=== PATIENT | male | born 1980 | race Caucasian/White ===

== ENCOUNTER 2020-02-06 18:57 | Emergency (ER) | payer OTHER ==
[~2020-02-06] VITALS: Ht 175.3 cm; Wt 76.2 kg
[~2020-02-06 18:57] MED LIST: ALBU90OI INH; ARIP15 PO; BACL10 PO; Bactrim Ds Tab1 EACH PO; CYCL10 PO; DICL75ER PO; DOXY100 PO; DULO30 PO; FAMO20 PO; IBUP800 PO; Keflex500 MG PO; LITH300C PO; MELO7.5 PO; Monodox100 MG PO; Norco 5-325 Ta1 EACH PO; OLAN5 PO; Ventolin/Prove6.7 GM INH
[2020-02-06 20:07] LABS: BASOPHILS ABSOLUTE AUTO 0.04 K/mm3 (0.00-0.23); BASOPHILS PERCENT AUTO 0 % (0-2); EOSINOPHILS ABSOLUTE AUTO 0.05 K/mm3 (0.00-0.68); EOSINOPHILS PERCENT AUTO 1 % (0-6); Hematocrit 46.8 % (37.0-53.0); Hemoglobin 15.7 g/dL (13.5-17.5); IMMATURE GRAN ABSOLUTE AUTO 0.03 K/mm3 (0.00-0.10); IMMATURE GRAN PERCENT AUTO 0 % (0-1); LYMPHOCYTES ABSOLUTE AUTO 2.11 K/mm3 (0.84-5.20); LYMPHOCYTES PERCENT AUTO 20 % (21-46); MONOCYTES ABSOLUTE AUTO 0.68 K/mm3 (0.16-1.47); MONOCYTES PERCENT AUTO 7 % (4-13); Mean Corpuscular HGB 30.4 pg (26.0-34.0); Mean Corpuscular HGB Conc 33.5 g/dL (31.5-36.5); Mean Corpuscular Volume 91 fL (80-100); Mean Platelet Volume 9.3 fL (9.1-12.4); NEUTROPHILS ABSOLUTE AUTO 7.51 K/mm3 (1.96-9.15); NEUTROPHILS PERCENT AUTO 72 % (41-73); Platelet Count 281 K/mm3 (150-400); RDW Standard Deviation 39.8 fL (35.1-46.3); Red Blood Cell Count 5.16 M/mm3 (4.30-5.90); White Blood Cell Count 10.42 K/mm3 (4.00-11.30)
[2020-02-06 20:25] LABS: Alanine Aminotransfer (ALT/SGP 20 U/L (12-78); Albumin/Globulin Ratio 1.1 (0.8-1.8); Alk Phos 89 U/L (50-136); Anion Gap 8 mmol/L (6-16); Aspartate Aminotrans (AST/SGOT 15 U/L (12-37); Bilirubin, Total 0.4 mg/dL (0.1-1.0); Blood Urea Nitrogen 13 mg/dL (8-24); Bun/Creatinine Ratio 13.2 (12.0-20.0); CO2, Blood 24 mmol/L (21-32); Chloride, Blood 107 mmol/L (98-108); Creatinine, Blood 0.98 mg/dL (0.60-1.20); Globulin, Blood 3.6 g/dL (2.2-4.0); Glomerular Filtration Rate >60 (60-); Glucose, Blood 78 mg/dL (70-99); Potassium, Blood 3.4 mmol/L (3.5-5.5); Sodium, Blood 139 mmol/L (136-145); Total Protein, Blood 7.6 g/dL (6.4-8.2); Troponin I <0.015 ng/mL (0.000-0.040)
== END 2020-02-06 22:54 | disposition home or self-care (01) ==
LOC: ER 18:57
PROVIDERS: Emergency Medicine
DX: R20.0 Anesthesia of skin (principal); R07.9 Chest pain, unspecified; F31.9 Bipolar disorder, unspecified; F17.210 Nicotine dependence, cigarettes, uncomplicated; Z20.2 Contact with and (suspected) exposure to infections with a predominantly sexual mode of transmission; Z88.6 Allergy status to analgesic agent; Z79.899 Other long term (current) drug therapy
CPT/HCPCS: 36415; 80053; 84484; 85025; 93005; 93010; 99285-25

== ENCOUNTER 2020-06-10 08:59 | Inpatient (IN) | payer OTHER ==
[~2020-06-10] VITALS: Ht 175.3 cm; Wt 72.6 kg
[2020-06-10 10:33] LABS: BASOPHILS ABSOLUTE AUTO 0.04 K/mm3 (0.00-0.23); BASOPHILS PERCENT AUTO 1 % (0-2); EOSINOPHILS ABSOLUTE AUTO 0.09 K/mm3 (0.00-0.68); EOSINOPHILS PERCENT AUTO 1 % (0-6); Hematocrit 47.4 % (37.0-53.0); IMMATURE GRAN ABSOLUTE AUTO 0.03 K/mm3 (0.00-0.10); IMMATURE GRAN PERCENT AUTO 0 % (0-1); LYMPHOCYTES ABSOLUTE AUTO 2.29 K/mm3 (0.84-5.20); LYMPHOCYTES PERCENT AUTO 30 % (21-46); MONOCYTES PERCENT AUTO 8 % (4-13); Mean Corpuscular HGB 30.1 pg (26.0-34.0); Mean Corpuscular HGB Conc 33.8 g/dL (31.5-36.5); Mean Corpuscular Volume 89 fL (80-100); Mean Platelet Volume 9.3 fL (9.1-12.4); NEUTROPHILS ABSOLUTE AUTO 4.48 K/mm3 (1.96-9.15); NEUTROPHILS PERCENT AUTO 60 % (41-73); Platelet Count 230 K/mm3 (150-400); RDW Coefficient Variation 12.2 % (11.7-14.2); RDW Standard Deviation 39.3 fL (35.1-46.3); Red Blood Cell Count 5.32 M/mm3 (4.30-5.90); White Blood Cell Count 7.53 K/mm3 (4.00-11.30)
[2020-06-10 10:52] LABS: Alanine Aminotransfer (ALT/SGP 30 U/L (12-78); Albumin, Blood 3.7 g/dL (3.4-5.0); Albumin/Globulin Ratio 1.1 (0.8-1.8); Alk Phos 75 U/L (50-136); Anion Gap 3 mmol/L (6-16); Aspartate Aminotrans (AST/SGOT 18 U/L (12-37); Bilirubin, Total 0.4 mg/dL (0.1-1.0); Blood Urea Nitrogen 15 mg/dL (8-24); CO2, Blood 29 mmol/L (21-32); Calcium, Blood 8.6 mg/dL (8.5-10.1); Chloride, Blood 107 mmol/L (98-108); Creatinine, Blood 0.88 mg/dL (0.60-1.20); Globulin, Blood 3.5 g/dL (2.2-4.0); Glomerular Filtration Rate >60 (60-); Glucose, Blood 91 mg/dL (70-99); Sodium, Blood 139 mmol/L (136-145); Total Protein, Blood 7.2 g/dL (6.4-8.2)
[2020-06-10 13:01] LABS: Influenza A, PCR NEGATIVE (NEGATIVE); Influenza B, PCR NEGATIVE (NEGATIVE); Resp Syncytial Virus, PCR NEGATIVE (NEGATIVE); SARS-Cov-2 (COVID-19) PCR, MMC NEGATIVE (NEGATIVE)
--- NOTE | 2020-06-10 13:15 | NUR ---
PT TO [facility] FROM ER RM 8. NPO SINCE 1900 LAST NOC. History, Chart, Medications and Allergies reviewed before start of procedure. Lungs clear T/O to Auscultation. Patient States Post-Procedure ride home has been arranged. PT AMBULATES TO RESTROOM c SLOW GAIT, + VOID.
--- NOTE | 2020-06-10 15:11 | NUR ---
RECIEVED PATIENT AND REPORT REQUESTING VSS.
--- NOTE | 2020-06-10 16:09 | NUR ---
Discharge instructions reviewed with patient. Patient verbalizes understanding. Copy given to patient to take home. Patient States Post-Procedure ride home has been arranged. Discharged via wheelchair to private car for ride home.
== END 2020-06-10 16:30 | disposition home or self-care (01) | DRG 355 ==
LOC: ER 08:59 → SURS 12:06 → ER 12:54 → SURS 16:30
PROVIDERS: Emergency Medicine; Surgery; ADMIT Internal Medicine
PROC: 0WUF0JZ Supplement Abdominal Wall with Synthetic Substitute, Open Approach (ICD-10-PCS; principal; 2020-06-10 13:00)
DX: K43.6 Other and unspecified ventral hernia with obstruction, without gangrene (principal); Z20.822 Contact with and (suspected) exposure to COVID-19; F31.9 Bipolar disorder, unspecified; F15.10 Other stimulant abuse, uncomplicated; F12.10 Cannabis abuse, uncomplicated; G89.29 Other chronic pain; M54.9 Dorsalgia, unspecified; F17.210 Nicotine dependence, cigarettes, uncomplicated; Z90.49 Acquired absence of other specified parts of digestive tract; Z88.6 Allergy status to analgesic agent; Z91.018 Allergy to other foods
CPT/HCPCS: 0241U; 36415; 74177; 80053; 83690; 85025; 96374-59; 96375; 99285-25; A9270-GY; C1781; J0690; J1100; J2250; J2270; J2405; J2704; J2765; J3010; J7120; Q9967

== ENCOUNTER 2020-11-18 11:28 | Emergency (ER) | payer OTHER ==
[~2020-11-18] VITALS: Ht 175.3 cm; Wt 78.0 kg
[2020-11-18 12:28] LABS: BASOPHILS ABSOLUTE AUTO 0.03 K/mm3 (0.00-0.23); BASOPHILS PERCENT AUTO 0 % (0-2); EOSINOPHILS ABSOLUTE AUTO 0.05 K/mm3 (0.00-0.68); EOSINOPHILS PERCENT AUTO 1 % (0-6); Hematocrit 50.2 % (37.0-53.0); Hemoglobin 17.1 g/dL (13.5-17.5); IMMATURE GRAN ABSOLUTE AUTO 0.02 K/mm3 (0.00-0.10); IMMATURE GRAN PERCENT AUTO 0 % (0-1); LYMPHOCYTES ABSOLUTE AUTO 1.84 K/mm3 (0.84-5.20); LYMPHOCYTES PERCENT AUTO 25 % (21-46); MONOCYTES ABSOLUTE AUTO 0.49 K/mm3 (0.16-1.47); MONOCYTES PERCENT AUTO 7 % (4-13); Mean Corpuscular HGB 30.2 pg (26.0-34.0); Mean Corpuscular HGB Conc 34.1 g/dL (31.5-36.5); Mean Corpuscular Volume 89 fL (80-100); Mean Platelet Volume 9.5 fL (9.1-12.4); NEUTROPHILS ABSOLUTE AUTO 5.05 K/mm3 (1.96-9.15); NEUTROPHILS PERCENT AUTO 67 % (41-73); Platelet Count 228 K/mm3 (150-400); RDW Coefficient Variation 12.4 % (11.7-14.2); RDW Standard Deviation 40.1 fL (35.1-46.3); Red Blood Cell Count 5.66 M/mm3 (4.30-5.90); White Blood Cell Count 7.48 K/mm3 (4.00-11.30)
[2020-11-18 12:53] LABS: Alanine Aminotransfer (ALT/SGP 23 U/L (12-78); Albumin, Blood 3.8 g/dL (3.4-5.0); Alk Phos 85 U/L (50-136); Anion Gap 5 mmol/L (6-16); Aspartate Aminotrans (AST/SGOT 18 U/L (12-37); Bilirubin, Total 0.4 mg/dL (0.1-1.0); Blood Urea Nitrogen 12 mg/dL (8-24); Bun/Creatinine Ratio 12.8 (12.0-20.0); CO2, Blood 29 mmol/L (21-32); Calcium, Blood 8.8 mg/dL (8.5-10.1); Chloride, Blood 106 mmol/L (98-108); Creatinine, Blood 0.94 mg/dL (0.60-1.20); Globulin, Blood 3.8 g/dL (2.2-4.0); Glomerular Filtration Rate >60 (60-); Glucose, Blood 90 mg/dL (70-99); Potassium, Blood 4.1 mmol/L (3.5-5.5); Sodium, Blood 140 mmol/L (136-145); Total Protein, Blood 7.6 g/dL (6.4-8.2); Troponin I <0.015 ng/mL (0.000-0.040)
== END 2020-11-18 13:29 | disposition home or self-care (01) ==
LOC: ER 11:28
PROVIDERS: Emergency Medicine
DX: D17.79 Benign lipomatous neoplasm of other sites (principal); R07.9 Chest pain, unspecified; R11.2 Nausea with vomiting, unspecified; F17.210 Nicotine dependence, cigarettes, uncomplicated; Z88.6 Allergy status to analgesic agent; Z91.048 Other nonmedicinal substance allergy status
CPT/HCPCS: 36415; 80053; 83690; 84484; 85025; 93005; 93010; 99283-25

== ENCOUNTER 2021-11-28 11:38 | Observation (INO) | payer OTHER ==
[~2021-11-28] VITALS: Ht 175.3 cm; Wt 86.2 kg
[2021-11-28 12:42] LABS: Source, Urine Clean Catch
[2021-11-28 12:46] LABS: BASOPHILS ABSOLUTE AUTO 0.04 K/mm3 (0.00-0.23); BASOPHILS PERCENT AUTO 1 % (0-2); EOSINOPHILS ABSOLUTE AUTO 0.09 K/mm3 (0.00-0.68); EOSINOPHILS PERCENT AUTO 1 % (0-6); Hematocrit 49.5 % (37.0-53.0); Hemoglobin 17.2 g/dL (13.5-17.5); IMMATURE GRAN ABSOLUTE AUTO 0.01 K/mm3 (0.00-0.10); IMMATURE GRAN PERCENT AUTO 0 % (0-1); LYMPHOCYTES ABSOLUTE AUTO 2.05 K/mm3 (0.84-5.20); LYMPHOCYTES PERCENT AUTO 28 % (21-46); MONOCYTES PERCENT AUTO 7 % (4-13); Mean Corpuscular HGB 30.4 pg (26.0-34.0); Mean Corpuscular HGB Conc 34.7 g/dL (31.5-36.5); Mean Corpuscular Volume 88 fL (80-100); Mean Platelet Volume 9.6 fL (9.1-12.4); NEUTROPHILS ABSOLUTE AUTO 4.64 K/mm3 (1.96-9.15); NEUTROPHILS PERCENT AUTO 63 % (41-73); Platelet Count 254 K/mm3 (150-400); RDW Coefficient Variation 12.4 % (11.7-14.2); RDW Standard Deviation 40.5 fL (35.1-46.3); Red Blood Cell Count 5.65 M/mm3 (4.30-5.90); White Blood Cell Count 7.33 K/mm3 (4.00-11.30)
[2021-11-28 13:05] LABS: Appearance, Urine Clear (Clear); Bilirubin, Urine Neg (Neg); Blood, Urine Neg (Neg); Color, Urine Yellow (P-Yellow); Glucose Qualitative, Urine Neg (Neg); Ketones, Urine Neg (Neg); Leukocyte Esterase, Urine Neg (Neg); Nitrite, Urine Neg (Neg); Protein, Urine Neg (Neg); Specific Gravity, Urine 1.025 (1.003-1.022); Urobilinogen, Urine NORM (Normal)
[2021-11-28 13:13] LABS: Salicylate 4.5 mg/dL (2.8-20.0)
[2021-11-28 13:16] LABS: Ethanol (Alcohol), Blood, Med <3 mg/dL
[2021-11-28 13:17] LABS: Alanine Aminotransfer (ALT/SGP 31 U/L (12-78); Albumin, Blood 4.1 g/dL (3.4-5.0); Albumin/Globulin Ratio 1.1 (0.8-1.8); Alk Phos 87 U/L (50-136); Anion Gap 4 mmol/L (6-16); Aspartate Aminotrans (AST/SGOT 25 U/L (12-37); Bilirubin, Total 0.3 mg/dL (0.1-1.0); Blood Urea Nitrogen 13 mg/dL (8-24); Bun/Creatinine Ratio 13.8 (12.0-20.0); CO2, Blood 20 mmol/L (21-32); Calcium, Blood 9.1 mg/dL (8.5-10.1); Chloride, Blood 112 mmol/L (98-108); Creatinine, Blood 0.94 mg/dL (0.60-1.20); Globulin, Blood 3.6 g/dL (2.2-4.0); Glomerular Filtration Rate 105 (60-); Glucose, Blood 81 mg/dL (70-99); Potassium, Blood 4.1 mmol/L (3.5-5.5); Sodium, Blood 136 mmol/L (136-145); Total Protein, Blood 7.7 g/dL (6.4-8.2)
[2021-11-28 13:21] LABS: Acetaminophen, Random <2.0 ug/mL (10.0-30.0)
[2021-11-28 15:58] LABS: Influenza A, PCR NEGATIVE (NEGATIVE); Influenza B, PCR NEGATIVE (NEGATIVE); Resp Syncytial Virus, PCR NEGATIVE (NEGATIVE); SARS-Cov-2 (COVID-19) PCR, MMC NEGATIVE (NEGATIVE)
[2021-11-28 17:04] LABS: U Amphetamine Screen Not Detected; U Barbituate Screen Not Detected; U Benzodiazapine Screen Not Detected; U Buprenorphine Screen Not Detected; U Cannabinoids Screen DETECTED; U Cocaine Screen Not Detected; U Methadone Screen Not Detected; U Methamphetamine Screen Not Detected; U Opiates Screen Not Detected; U Oxycodone Screen Not Detected; U Phencyclidine Screen Not Detected; U Propoxyphene Screen Not Detected
[2021-11-28] MEDS ORDERED: ATORVASTATIN CA20 MG PO (17:51)
[2021-11-28] MEDS ORDERED: SERT100 PO (17:51)
[2021-11-28] MEDS ORDERED: LISINOPRIL2.5 MG PO (17:52)
[2021-11-28] MEDS ORDERED: HYDHCL25 PO (17:52)
[2021-11-28] MEDS ORDERED: OMEP20ER PO (17:53)
== END 2021-11-29 16:45 ==
LOC: ER 11:38 → EOR 11:39
PROVIDERS: Physician Assistant; ADMIT Emergency Medicine
DX: F33.2 Major depressive disorder, recurrent severe without psychotic features (principal); Z20.822 Contact with and (suspected) exposure to COVID-19; Z88.2 Allergy status to sulfonamides; F41.9 Anxiety disorder, unspecified; F17.210 Nicotine dependence, cigarettes, uncomplicated
CPT/HCPCS: 0241U; 36415; 80053; 81003; 85025; 99285; A9270; G0378; G0480; Q3014

== ENCOUNTER 2022-10-04 08:54 | Day surgery (SDC) | payer OTHER ==
[2022-10-04] VITALS (21 sets, daily range): BP systolic 93–130; BP diastolic 58–92
[~2022-10-04] VITALS: Ht 175.3 cm; Wt 84.5 kg
[~2022-10-04 08:54] MED LIST changes: +ATORVASTATIN CA20 MG PO; +HYDHCL25 PO; +LISINOPRIL2.5 MG PO; +OMEP20ER PO; +SERT100 PO
--- NOTE | 2022-10-04 09:21 | NUR ---
10/04/22 0921 Devi Talamantes HISTORY, CHART, MEDICATIONS AND ALLERGIES REVIEWED BEFORE START OF PROCEDURE. PATIENT CONFIRMS NPO STATUS AND AGREES WITH SCHEDULED PROCEDURE. 3-LEAD EKG REVIEWED WITH PHYSICIAN PRIOR TO START OF PROCEDURE. MONITOR INTACT WITH CONTINUOUS PULSE OXIMETRY,CAPNOGRAPHY, 3-LEAD EKG, INTERMITTENT BP. SUPPLEMENTAL O2 TO BE TITRATED THROUGHOUT PROCEDURE TO MAINTAIN O2 SATURATION ABOVE 90%. PATIENT DETERMINED TO BE ASA APPROPRIATE FOR PROPOFOL SEDATION PRIOR TO START OF PROCEDURE BY DR. PALMA
== END 2022-10-04 22:46 | disposition home or self-care (01) ==
LOC: ORSCMMR 08:54 → ORD 10:30 → ORSCMMR 10:30
PROVIDERS: Internal Medicine Gastroenterology
PROC: 0DBN8ZX Excision of Sigmoid Colon, Via Natural or Artificial Opening Endoscopic, Diagnostic (ICD-10-PCS; principal; 2022-10-04 10:30)
DX: K62.5 Hemorrhage of anus and rectum (principal); Z80.0 Family history of malignant neoplasm of digestive organs; K63.5 Polyp of colon; K64.8 Other hemorrhoids; E11.9 Type 2 diabetes mellitus without complications; J45.909 Unspecified asthma, uncomplicated; F32.A Depression, unspecified; E78.00 Pure hypercholesterolemia, unspecified; Z79.899 Other long term (current) drug therapy
CPT/HCPCS: 88305; J2250; J2704; J3010; J7120

== ENCOUNTER 2024-11-06 02:45 | Observation (INO) | payer OTHER ==
[~2024-11-06] VITALS: Ht 175.3 cm; Wt 72.7 kg
[2024-11-06 03:13] LABS: BASOPHILS ABSOLUTE AUTO 0.04 K/mm3 (0.00-0.23); BASOPHILS PERCENT AUTO 0 % (0-2); EOSINOPHILS ABSOLUTE AUTO 0.02 K/mm3 (0.00-0.68); EOSINOPHILS PERCENT AUTO 0 % (0-6); Hematocrit 46.0 % (37.0-53.0); Hemoglobin 15.9 g/dL (13.5-17.5); IMMATURE GRAN ABSOLUTE AUTO 0.09 K/mm3 (0.00-0.10); IMMATURE GRAN PERCENT AUTO 1 % (0-1); LYMPHOCYTES ABSOLUTE AUTO 1.71 K/mm3 (0.84-5.20); LYMPHOCYTES PERCENT AUTO 11 % (21-46); MONOCYTES ABSOLUTE AUTO 1.24 K/mm3 (0.16-1.47); MONOCYTES PERCENT AUTO 8 % (4-13); Mean Corpuscular HGB Conc 34.6 g/dL (31.5-36.5); Mean Corpuscular Volume 86 fL (80-100); NEUTROPHILS ABSOLUTE AUTO 12.57 K/mm3 (1.96-9.15); NEUTROPHILS PERCENT AUTO 80 % (41-73); NRBC ABSOLUTE 0.00 K/mm3 (0.00-0.02); NRBC Auto 0.0 /100 WBC (0.0-0.2); Platelet Count 294 K/mm3 (150-400); RDW Coefficient Variation 11.7 % (11.7-14.2); RDW Standard Deviation 36.6 fL (35.1-46.3)
[2024-11-06 03:33] LABS: Alanine Aminotransfer (ALT/SGP 27.0 U/L (12-78); Albumin, Blood 3.5 g/dL (3.4-5.0); Albumin/Globulin Ratio 0.9 (0.8-1.8); Anion Gap 13.0 mmol/L (3-11); Aspartate Aminotrans (AST/SGOT 17.0 U/L (12-37); Bilirubin, Total 0.9 mg/dL (0.1-1.0); Blood Urea Nitrogen 8.0 mg/dL (8-24); CO2, Blood 20.0 mmol/L (21-32); Calcium, Blood 8.7 mg/dL (8.5-10.1); Chloride, Blood 105.0 mmol/L (98-108); Creatinine, Blood 0.95 mg/dL (0.60-1.20); Globulin, Blood 4.0 g/dL (2.2-4.0); Glucose, Blood 121.0 mg/dL (70-99); Potassium, Blood 3.5 mmol/L (3.5-5.5); Sodium, Blood 134.0 mmol/L (136-145); Total Protein, Blood 7.5 g/dL (6.4-8.2)
[2024-11-06] MEDS ORDERED: NS 1,000 ML IV SCH ×4 (04:40→06:00)
[2024-11-06] MEDS ORDERED: CefTRIAXone Sodium 1,000 MG in NS 50 ML IV ONE (04:40)
[2024-11-06] MEDS ORDERED: Ipratropium/Albuterol SulF 2.5-0.5MG/3 ML Amp INH ONE (04:45)
[2024-11-06] MEDS ORDERED: Ondansetron HCl 2 MG / ML 2ML Vial IV PRN (05:50)
[2024-11-06] MEDS ORDERED: FLU VACC TS2025-26(6MOS UP)/PF 45 MCG/0.5 ML SYRINGE IM ONE (05:50)
[2024-11-06 05:55] LABS: Source, Urine Clean Catch
[2024-11-06 06:01] LABS: Color, Urine Amber (P-Yellow); Glucose Qualitative, Urine Neg (Neg); Ketones, Urine Neg (Neg); Leukocyte Esterase, Urine 1+ (Neg); Protein, Urine 2+ (Neg); Specific Gravity, Urine 1.025 (1.003-1.022); Urobilinogen, Urine 1+ (Normal)
[2024-11-06 06:17] LABS: Bilirubin, Urine 1+ (Neg)
[2024-11-06 06:18] LABS: Red Blood Cells, Urine Not Seen /hpf (0-2); White Blood Cells, Urine 0-2 /hpf (0-5)
[2024-11-06] MEDS ORDERED: Enoxaparin 40 MG/0.4 ML SYR SC SCH (09:00)
[2024-11-06 10:24] LABS: Influenza A, PCR NEGATIVE (NEGATIVE); Influenza B, PCR NEGATIVE (NEGATIVE); Resp Syncytial Virus, PCR NEGATIVE (NEGATIVE); SARS-Cov-2 (COVID-19) PCR, MMC NEGATIVE (NEGATIVE)
[2024-11-06 12:14] VITALS: BP 132/106
--- NOTE | 2024-11-06 18:22 | NUR ---
SHIFT SUMMARY- PT ADMITTED THROUGH THE ED FOR PNEUMONIA. PT CAME IN WITH CP AND HAD NEGATIVE TROPONINS. VS STABLE HR TACHY. IVF INFUSING IN THE LEFT AC. PE STUDY NEGATIVE. CALLED DR ESPINOZA AFTER TALKING WITH THE PT. THE PT MADE COMENTS CONCERNING FOR HIS HEALTH. PT STATES "I WAS BJORN HOPING THIS WAS A HEART THING, SO THEN IT WOULD ALL BE OVER." THE PT THEN WENT ON TO SAY "I MEAN ITS THE [place] FORTE OF LIFE RIGHT? I AM NOT OPPOSED TO FEEDING THE WORMS." NOTIFIED DR ESPINOZA AFTER [facility], WHO IS VISITING THE PT NOW. WILL PASS ON TO NIGHT RN THAT THE PT NEEDS EXTRA TIME, SOCIAL INTERACTION, AND INTEREST IN HIS WELLBEING IF THERE IS ANY TO SPARE.
[2024-11-06] MEDS ORDERED: Albuterol 2.5 MG/3 ML VIAL INH PRN (18:30)
--- NOTE | 2024-11-06 18:44 | NUR ---
"Spiritual Care | Nurse Request Pt. is awake in bed and welcomes my visit. Pt. is pleasant, but is very unsettled about his health and his living conditions. Pt. verbalizes details of how he doesn't have easy access to health care because he [place] up near [place] and doesn't drive. The Pt. displayed evidene of hopelessness. Through theraputic listening and a calming presence Pt. began to display a courase fo action that focused on his wellbeing. Prayed with the Pt. and gave pastoral encouragement and prison classification counselor. Pt. verbalized gratitude for the spiritual care visit."
[2024-11-06 19:24] VITALS: BP 135/90
[2024-11-06] MEDS ORDERED: Lactobacil 2-S.Thermo-Bifido 1 1 Cap PO SCH (21:00)
[2024-11-06 23:27] VITALS: BP 132/102
[2024-11-07 03:51] VITALS: BP 154/99
--- NOTE | 2024-11-07 04:31 | NUR ---
Patient reports pain and swelling of bilateral hands, no pitting edema noted just nonpitting generalized edema to both hands, tylenol given for discomfort, denies need for stronger pain medication, nicotine patch came off when up to bathroom, disposed of it properly, pattisharad stated he will be okay until morning,educated to let us know if he decides he needs a replacement patch, complained of sternal chest pain around 0330 this morning, no EKG changes noted vital signs obtained Dr Augustin notified by Leandro WORKMAN, blood pressure medication ordered to start this morning. educated to call for any further pain or discomfort, call light in reach, bed in low and locked positon, instructed to call for help when getting up to bathroom or other reasons. will continue to monitor.
[2024-11-07 05:35] LABS: BASOPHILS ABSOLUTE AUTO 0.03 K/mm3 (0.00-0.23); BASOPHILS PERCENT AUTO 0 % (0-2); EOSINOPHILS ABSOLUTE AUTO 0.08 K/mm3 (0.00-0.68); EOSINOPHILS PERCENT AUTO 1 % (0-6); Hematocrit 42.6 % (37.0-53.0); Hemoglobin 14.5 g/dL (13.5-17.5); IMMATURE GRAN ABSOLUTE AUTO 0.02 K/mm3 (0.00-0.10); IMMATURE GRAN PERCENT AUTO 0 % (0-1); LYMPHOCYTES ABSOLUTE AUTO 2.10 K/mm3 (0.84-5.20); LYMPHOCYTES PERCENT AUTO 26 % (21-46); MONOCYTES ABSOLUTE AUTO 0.82 K/mm3 (0.16-1.47); MONOCYTES PERCENT AUTO 10 % (4-13); Mean Corpuscular HGB Conc 34.0 g/dL (31.5-36.5); Mean Corpuscular Volume 89 fL (80-100); NEUTROPHILS ABSOLUTE AUTO 4.90 K/mm3 (1.96-9.15); NEUTROPHILS PERCENT AUTO 62 % (41-73); NRBC ABSOLUTE 0.00 K/mm3 (0.00-0.02); NRBC Auto 0.0 /100 WBC (0.0-0.2); Platelet Count 238 K/mm3 (150-400); RDW Coefficient Variation 11.8 % (11.7-14.2); RDW Standard Deviation 38.4 fL (35.1-46.3)
[2024-11-07 05:58] LABS: Anion Gap 8.0 mmol/L (3-11); Blood Urea Nitrogen 8.0 mg/dL (8-24); CO2, Blood 22.0 mmol/L (21-32); Calcium, Blood 8.4 mg/dL (8.5-10.1); Chloride, Blood 110.0 mmol/L (98-108); Creatinine, Blood 0.78 mg/dL (0.60-1.20); Glucose, Blood 97.0 mg/dL (70-99); Potassium, Blood 3.8 mmol/L (3.5-5.5); Sodium, Blood 136.0 mmol/L (136-145)
[2024-11-07 07:07] VITALS: BP 123/89
[2024-11-07] MEDS ORDERED: CefTRIAXone Sodium 1,000 MG in NS 100 ML IV SCH (09:00)
[2024-11-07] MEDS ORDERED: IBUP800 PO (12:10)
[2024-11-07] MEDS ORDERED: Prinivil10 MG PO (12:11)
[2024-11-07] MEDS ORDERED: SERT50 PO (12:12)
[2024-11-07] MEDS ORDERED: NICODERM CQ1 EA11 TOP (12:12)
[2024-11-07] MEDS ORDERED: PRED20 PO (12:12)
[2024-11-07] MEDS ORDERED: VISBIOME 112.51 EACH PO (12:13)
[2024-11-07] MEDS ORDERED: AZIT500 PO (12:13)
--- NOTE | 2024-11-07 13:18 | NUR ---
DISCHARGE NOTE PT A&OX4. PT ADMITTED DUE TO SEPSIS. PT REPORTS CHEST PAIN, SARAHI KATZ NOTIFIED, DR. MCCLAIN ORDERED ESR LAB, ESR LAB RESULTS REPORTED TO DR. MCCLAIN. DR MCCLAIN REPORTED "STILL OK TO DISCHARGE." PT GOT SHOWER. IV AND TELE D/C NO TELE REPORTS THIS AM. PT REPORTS SOME SOB WITH AMBULATION. COFFEE BLENDER INVOLVED WITH TRANSPORT. STRATEGIC PLANNING MANAGERJACINTA DUKE COMPLETED DISCHARGE. WENT OVER DISCHARGE WITH PT. STRATEGIC PLANNING MANAGER FAXED MEDS TO PREFERED PHARMACY. PT ESCORTED BY WHEELCHAIR TO [facility] PER COFFEE BLENDER FOR [facility]AXI ARRANGEMENTS AT 1255. PT TOOK ALL PERSONAL BELONGINGS. VSS.
[2024-11-08 04:51] LABS: CYCLIC CITRULLINATED PEP,IGG/A 5 Units (0-19)
[2024-11-08 22:46] LABS: ANTI-NUCLEAR AB ANA,IGG ELISA None Detected (None Detected)
== END 2024-11-07 12:55 | disposition home or self-care (01) ==
LOC: ER 02:45 → ERHOLD 02:46 → MEDS 12:10 → ENPENDDIS 11-07 11:45 → MEDS 11-07 12:55
PROVIDERS: Emergency Medicine; Internal Medicine; ADMIT Student in an Organized Health Care Education/Training Program
DX: R07.81 Pleurodynia (principal); R65.10 Systemic inflammatory response syndrome (SIRS) of non-infectious origin without acute organ dysfunction; E87.20 Acidosis, unspecified; I10 Essential (primary) hypertension; F17.210 Nicotine dependence, cigarettes, uncomplicated; E78.00 Pure hypercholesterolemia, unspecified; F31.9 Bipolar disorder, unspecified; R00.0 Tachycardia, unspecified; R79.89 Other specified abnormal findings of blood chemistry; M94.0 Chondrocostal junction syndrome [Tietze]; J45.909 Unspecified asthma, uncomplicated; Z88.8 Allergy status to other drugs, medicaments and biological substances; Z91.048 Other nonmedicinal substance allergy status; Z79.899 Other long term (current) drug therapy; Z59.6 Low income; Z59.89 Other problems related to housing and economic circumstances
CPT/HCPCS: 36415; 71045; 71260; 80048; 80053; 81001; 83605; 84145; 84484; 85025; 85379; 85651; 86038; 86200; 87040; 87086; 87637; 93005; 93010; 94760; 96372; 96374; 96375; 96376; 99285-25; A9270; G0378; J0456; J0696; J1650; J7030; J7050; J7512; Q9967

== ENCOUNTER 2024-11-17 11:06 | Observation (INO) | payer OTHER ==
[~2024-11-17] VITALS: Ht 182.9 cm; Wt 81.7 kg
[~2024-11-17 11:06] MED LIST changes: +AZIT500 PO; +NICODERM CQ1 EA11 TOP; +PRED20 PO; +Prinivil10 MG PO; +SERT50 PO; +VISBIOME 112.51 EACH PO
[2024-11-17] MEDS ORDERED: ALBU90OI INH (11:51)
[2024-11-17 12:06] LABS: Source, Urine Clean Catch
[2024-11-17 12:12] LABS: BASOPHILS ABSOLUTE AUTO 0.05 K/mm3 (0.00-0.23); BASOPHILS PERCENT AUTO 1 % (0-2); EOSINOPHILS ABSOLUTE AUTO 0.10 K/mm3 (0.00-0.68); EOSINOPHILS PERCENT AUTO 1 % (0-6); Hematocrit 46.8 % (37.0-53.0); Hemoglobin 16.3 g/dL (13.5-17.5); IMMATURE GRAN ABSOLUTE AUTO 0.04 K/mm3 (0.00-0.10); IMMATURE GRAN PERCENT AUTO 0 % (0-1); LYMPHOCYTES ABSOLUTE AUTO 2.52 K/mm3 (0.84-5.20); LYMPHOCYTES PERCENT AUTO 25 % (21-46); MONOCYTES ABSOLUTE AUTO 0.59 K/mm3 (0.16-1.47); MONOCYTES PERCENT AUTO 6 % (4-13); Mean Corpuscular HGB Conc 34.8 g/dL (31.5-36.5); Mean Corpuscular Volume 85 fL (80-100); NEUTROPHILS ABSOLUTE AUTO 6.73 K/mm3 (1.96-9.15); NEUTROPHILS PERCENT AUTO 67 % (41-73); NRBC ABSOLUTE 0.00 K/mm3 (0.00-0.02); NRBC Auto 0.0 /100 WBC (0.0-0.2); Platelet Count 416 K/mm3 (150-400); RDW Coefficient Variation 11.9 % (11.7-14.2); RDW Standard Deviation 37.0 fL (35.1-46.3)
[2024-11-17 12:14] LABS: Bilirubin, Urine Neg (Neg); Color, Urine Yellow (P-Yellow); Glucose Qualitative, Urine Neg (Neg); Ketones, Urine Neg (Neg); Leukocyte Esterase, Urine Neg (Neg); Protein, Urine Neg (Neg); Specific Gravity, Urine 1.020 (1.003-1.022); Urobilinogen, Urine NORM (Normal)
[2024-11-17 12:30] LABS: U Amphetamine Screen Not Detected; U Barbituate Screen Not Detected; U Benzodiazapine Screen Not Detected; U Buprenorphine Screen Not Detected; U Cannabinoids Screen DETECTED; U Cocaine Screen Not Detected; U Methadone Screen Not Detected; U Methamphetamine Screen Not Detected; U Opiates Screen Not Detected; U Oxycodone Screen Not Detected; U Phencyclidine Screen Not Detected
[2024-11-17 12:35] LABS: Ethanol (Alcohol), Blood, Med <3 mg/dL; Salicylate 2.0 mg/dL (2.8-20.0)
[2024-11-17 13:17] LABS: Acetaminophen, Random <2.0 ug/mL (10.0-30.0); Alanine Aminotransfer (ALT/SGP 60 U/L (12-78); Albumin, Blood 3.6 g/dL (3.4-5.0); Albumin/Globulin Ratio 0.9 (0.8-1.8); Anion Gap 8 mmol/L (3-11); Aspartate Aminotrans (AST/SGOT 39 U/L (12-37); Bilirubin, Total 0.3 mg/dL (0.1-1.0); Blood Urea Nitrogen 5 mg/dL (8-24); CO2, Blood 24 mmol/L (21-32); Calcium, Blood 9.1 mg/dL (8.5-10.1); Chloride, Blood 107 mmol/L (98-108); Creatinine, Blood 0.87 mg/dL (0.60-1.20); Globulin, Blood 4.0 g/dL (2.2-4.0); Glucose, Blood 93 mg/dL (70-99); Potassium, Blood 3.5 mmol/L (3.5-5.5); Sodium, Blood 135 mmol/L (136-145); Total Protein, Blood 7.6 g/dL (6.4-8.2)
[2024-11-17 16:02] VITALS: BP 119/81
== END 2024-11-17 16:19 | disposition other institution (70) ==
LOC: ER 11:06 → EOR 11:07
PROVIDERS: Student in an Organized Health Care Education/Training Program; ADMIT Emergency Medicine
DX: F33.2 Major depressive disorder, recurrent severe without psychotic features (principal); F17.210 Nicotine dependence, cigarettes, uncomplicated; Z88.8 Allergy status to other drugs, medicaments and biological substances; Z79.899 Other long term (current) drug therapy
CPT/HCPCS: 80053; 80320; 81003; 85025; 99285; A9270; G0480

== ENCOUNTER 2024-11-17 11:07 | Inpatient (IN) | payer OTHER ==
[~2024-11-17] VITALS: Ht 175.3 cm; Wt 87.7 kg
[2024-11-17] MEDS ORDERED: ALBU90OI INH (11:51)
[2024-11-17] MEDS ORDERED: Ondansetron 4 MG SoluTab MM PRN (14:05)
[2024-11-17] MEDS ORDERED: Polyethylene Glycol 3350 17 gm PO PRN (14:05)
[2024-11-17] MEDS ORDERED: FLU VACC TS2025-26(6MOS UP)/PF 45 MCG/0.5 ML SYRINGE IM SCH (14:10)
[2024-11-17] MEDS ORDERED: LORazepam 2 MG/ML 1ML Injection IM PRN (14:10)
[2024-11-17] MEDS ORDERED: Aluminum Hydroxide 320MG/5ML 473 ML PO PRN (14:15)
[2024-11-17] MEDS ORDERED: DiphenhydrAMINE HCl 50 MG/ML 1ML Vial IM PRN (14:15)
[2024-11-17] MEDS ORDERED: Haloperidol Lactate Inj. 5 MG/ML Injection IM PRN (14:15)
[2024-11-17 16:41] VITALS: BP 144/87
[2024-11-17 16:55] VITALS: BP 144/87
--- NOTE | 2024-11-17 18:16 | NUR ---
ADMISSION NOTE/SHIFT SUMMARY PT ARRIVED FROM [facility] ER AT APPROX 1624. PT WAS AxOx4. PLEASANT AND COOPERATIVE WITH CARE. PT HERE WITH CURRENT SUICIDAL IDEATION, ENDORSES PLAN TO USE A "HOME MADE NOOSE." PT REPORTS TRIGGER BEING INCREASING CONFLICT WITH ROOM MATE AND FEELING BURDENED WITH HIS CARE AND HOUSEKEEPING. PT REPORTS COMPLIANCE WITH MEDICATION, BUT DIFFICULTY OBTAINING TRANSPORTATION FOR MEDICAL APPOINTMENTS. PT IDENTIFIED GOALS OF GAINING COPING SKILLS TO MANAGE MENTAL HEALTH. PT REPORTS CHRONIC BACK PAIN THAT HE SELF MANAGES WITH MARIJUANA AND IBUPROFEN. PT ALSO REPORTS USING A CANE TO ASSIST WITH GETTING UP AND DOWN TO SITTING POSITION, BUT STATES HE DOES NOT NEED IT AT ALL TIMES FOR STABILITY. PT AGREED THAT USING SIDE RAILS ON UNIT WILL BE ACCESSIBLE FOR HIS MOBILITY NEEDS. PT IS CURRENTLY SITTING IN DINING ROOM EATING DINNER. ADMISSION COMPLETED. PT IS HERE VOLUNTARILY. HE CURRENTLY DENIES ANY NEED AT THIS TIME.
[2024-11-17 20:03] VITALS: BP 138/90
--- NOTE | 2024-11-18 04:19 | NUR ---
SHIFT SUMMARY 44 YEAR OLD MALE PRESENTED WELL GROOMED AND ABLE TO MAKE AND KEEP EYE CONTACT DURING CONVERSATION. PT SPOKE IN A CLEAR VOICE AND IN AN APPROPRIATE VOLUME. WHEN ASKED ABOUT HIS MOOD, HE SATED, "I'M STILL IN A BAD HEADSPACE." PT DENIED HI AND AVTH, BUT ENDORCED ONGOING SI. WHEN ASK IF HE HAD A PLAN, HE STATED, "NO. I HAVEN'T HAD A CHANCE TO SIT DOWN AND REALLY THINK ABOUT IT. I KNOW THAT SOUNDS BAD, BUT IT'S JUST THE WAY MY BRAIN WORKS." PT WAS CALM AND COOPERATIVE WITH CARE. PT RECEIVED PRN IBUPROFEN FOR LOWER BACK PAIN. PT INTERACTED WELL WITH STAFF AND PEERS. WATCHED TV AND ATTENDED SNACK. HAS SLEPT MOST OF THE NIGHT. CONTINUES TO BE MONITORED Q15 MINUTES FOR SAFETY, WITH SI MITIGATION CHECKS Q4 HOURS. ADMISSION PACKET COMPLETED.
[2024-11-18 08:11] LABS: CHOL/HDL RATIO 7.3; Cholesterol 197 mg/dL (50-200); HDL Cholesterol 27 mg/dL (>39); LDL/HDL RATIO 5.3; Low Density Lipoprotein Chol 144 mg/dL (0-110); Triglycerides 132 mg/dL (30-160); Very Low Density Lipoprot Chol 26 mg/dL (6-32)
[2024-11-18] MEDS ORDERED: Multivitamins 1 Tab PO SCH (09:00)
[2024-11-18 09:08] VITALS: BP 142/106
[2024-11-18 10:11] VITALS: BP 135/84
[2024-11-18] MEDS ORDERED: Albuterol HFA200 ACT/6.7 GM INH INH PRN (11:30)
--- NOTE | 2024-11-18 17:41 | NUR ---
SHIFT SUMMARY PT EXPRESSES CONTINUED SI WITHOUT A SPECIFIC PLAN. HE CONINUES TO HAVE A DESIRE TO FIND A NEW LIVING SITUATION HE FEELS HIS CURRENT ONE WITH HIS FRIEND IS A TOXIC SITUATION. HE WAS MEDICATED MULTIPLE TIMES FOR CHRONIC BACK PAIN, SEE MAR. PT WAS GIVEN PRN VISTARIL FOR ANXIETY, BY JACINTA CAIN. SEE MASS SCORE. PT HAD A DEPRESSIVE AFFECT THIS SHIFT. HE DENIES HI/AVTH. PT ATTENDED GROUPS. HE C/O CP AND STATES IT FEEL LIKE IT DOES WHEN HIS BP GETS HIGH AND HE DOESN'T TAKE HIS MEDS. PT STARTED ON HIS LISINOPRIL AND EKG DONE AND SHOWN TO DR. PAK.
--- NOTE | 2024-11-19 04:13 | NUR ---
SHIFT SUMMARY PATIENT UP IN MILIEU WATCHING TV AT BEGINNING OF SHIFT. C/O LOW BACK AND WRIST PAIN 9/10 VERBALIZED CHRONIC PAIN WITH 4/10 ON A "GOOD DAY" IBUPROFEN PRN GIVEN. PATIENT CONTINUES TO HAVE SI WITH PLAN TO "PUT MY NOOSE TO GOOD WORK" WHEN HE GOES HOME. VERBALIZED NO PLAN WHILE HERE AT THIS TIME. DENIES AVTH. VERBALIZED FEELING ANXIOUS AND RESTLESS MASS 4 ZYPREXA PRN GIVEN. AFTER SNACK PATIENT RETURNED TO WATCHING TV. REQUESTING TRAZODONE FOR SLEEP. APPEARS TO BE SLEEPING WELL T/O NIGHT. CONTINUE TO MONITOR Q15MIN
[2024-11-19 08:51] VITALS: BP 147/102
[2024-11-19] MEDS ORDERED: Menthol/Methyl Salicylate Crm 85 GM TUBE TOP PRN (15:16)
--- NOTE | 2024-11-19 18:10 | NUR ---
SHIFT SUMMARY PT HAD TO BE WOKE FOR AM MEAL. HE WAS C/O PAIN 9/10 THIS AM, IN HIS NECK AND WRIST AND MOST JOINTS, WHICH IS CHRONIC FOR HIM. HE WAS MEDICATED WITH PRN PAIN MEDS TWICE THIS SHIFT, SEE MAR. PT APPEARED SLIGHTLY DIAPHORETIC AND DROWSY, HE HAD TREMORS IN HIS BUE AND HE WAS MOVING HIS HANDS AROUND EACH OTHER. PT WAS ALSO RECIEVED PRN HYDROXYZINE, SEE MAR. PT WAS COMPLIANT WITH ALL MEDICATIONS AND ATTENDED ALL MEALS. HE HAS A DEPRESSIVE AFFECT AND STATES HE STILL HAS SI WITHOUT A PLAN BUT DENIES HI. HE DENIES AVTH. A CONSULT WAS PLACED FOR HOSPITALIST R/T PAIN MANAGEMENT. HIS ADVIL WAS INCREASED AND HE WAS PLACED ON BACLOFEN PRN, SEE MAR. AFTER DINNER MEAL PT WAS HEAR LOUDLY VOMITING IN ROOM. JACINTA LOPEZ ASKED PT IF HE IS POSSIBLY WITHDRAWING FROM SOMETHING, PT DENIED. PT STATED HE "DOES THIS SOMETIMES." PT WAS MEDICATED WITH PRN ZOFRAN, SEEN ON APR. VSS.
[2024-11-19 18:21] VITALS: BP 153/96
[2024-11-19 19:51] VITALS: BP 127/93
--- NOTE | 2024-11-19 23:33 | NUR ---
PATIENT UP TO BATHROOM HAVING LARGE AMT OF DARK BROWN EMESIS. ZOFRAN GIVEN, PATIENT VERBALIZED NAUSEA BETTER AFTER EMESIS. WILL CONTINUE TO MONITOR FOR FURTHER EMESIS OR NAUSEA. SINK AND FLOOR CLEANED WITH BLEACH WIPES.
--- NOTE | 2024-11-20 04:33 | NUR ---
SHIFT SUMMARY PATIENT IN BED VERBALIZED CONTINUES TO FEEL SLIGHT NAUSEA, ZOFRAN GIVEN AT 1816 AFTER EMESIS. PATIENT VERBALIZED THAT HE CONTINUES TO HAVE SI WITH NO PLAN WHILE HERE. DENIES HI, OR AVTH. CONTINUES TO HAVE BACK, WRIST, KNEE AND ANKLE PAIN 7/10 IBUPROFEN GIVEN. PATIENT UP FOR SNACK ABLE TO EAT CHEERIOS THEN BACK TO BED. VERBALIZED NO PAIN RELIEF WITH IBUPROFEN AND PATIENT NOW HAVING HICCUPS, BACLOFEN GIVEN. PATIENT AWAKENS WITH N/V WITH LARGE AMT APROX 500CC OF DARK BROWN EMESIS, ZOFRAN GIVEN WITH NO RELIEF OF NAUSEA. AT 0125 ORDER OBTAINED FOR ONE TIME DOSE OF PHENERGAN DUE TO CONTINUES N/V EMESIS AT 0140 WAS SMALL YELLOW BILE. PATIENT NOW SLEEPING AND CONTINUES TO HAVE HICCUPS. CONTINUE TO MONITOR Q15MIN
[2024-11-20 08:58] VITALS: BP 132/88
--- NOTE | 2024-11-20 10:17 | NUR ---
UPDATE PT VOMITED AROUND 5-10ML OF CLEAR EMESIS (PER PT). BT AUSCULTATED IN ALL 4 QUADRANTS.
--- NOTE | 2024-11-20 17:04 | NUR ---
SHIFT SUMMARY PT DENIES HI, AVTH. C/O OF SI, W/ NO INTENT TO ACT/PLAN WHILE ON UNIT. PT STATES THAT SI IS CHRONIC, BUT CURRENTLY IS WORRIED ABOUT POST DISCHARGE PLANS D/T HOUSING SITUATION. AND RUSSELL AWARE. PT INTERACTING W/ PEERS AND STAFF AND IS CURRENTLY IN DAYROOM WATCHING TV. THIS AM PT VOMITED TWICE TODAY W/ INITIAL EMESIS BEING CLEAR AND SECOND ONE BEING CARRERA. PT COMPLAINED OF EPIGASTRIC PAIN "FEELS LIKE I HAVE A PILL STUCK THERE". ZOFRAN GIVEN INITIALLY, THEN DOCTOR NOTIFIED W/ ORDERS FOR PROMETHAZINE. PT HAS NOT BEEN NAUSEOUS SINCE. PT STATES THAT THIS IS CHRONIC FOR HIM AND THAT ITS USUALLY PRECEDED BY HICCUPS. PT STATED HE HAD A BOWEL MOVEMENT YESTERDAY MORNING W/ BROWN/RED STOOL, PT STATES THAT HE HAS HEMMRHOIDS AND AWARE. DR BY TO SEE PT AND EVALUATE. BT AUSCULTATED IN ALL 4 QUADRANTS. ONLY COMPLAINT PT HAS AT THIS TIME IS LOWER BACK PAIN; IBUPROFEN GIVEN PER EMAR.
[2024-11-20] MEDS ORDERED: Metoclopramide HCL Soln 10 MG/10 ML UDC PO PRN (18:35)
[2024-11-20 18:40] VITALS: BP 125/90
--- NOTE | 2024-11-21 05:03 | NUR ---
SHIFT SUMMARY: PATIENT WAS IN HIS ROOM, VOMITING, AT THE BEGINNING OF THE SHIFT. HE WAS QUITE CONCERNED BECAUSE THERE WAS A SMALL AMOUNT OF BRIGHT RED BLOOD IN THE EMESIS. RN SPOKE WITH HIM ABOUT WHAT THAT MIGHT MEAN, AND THAT IT WAS SOMETHING TO KEEP AN EYE ON AND REPORT TO THE DOCTOR, BUT NOT PANIC OVER. THAT SAID, PATIENT WAS ASKED TO SHOW EMESIS TO RN EACH TIME, SO THAT AN ASSESSMENT COULD BE MADE. HE HAD TAKEN REGLAN EARLIER ON DAY SHIFT, AND TRIED PHENERGAN WITH HIS EVENING MEDICATIONS. THE COMBINATION OF THE TWO, AND HIS EATING HIS SNACK SLOWLY ( DIRECTED BY RN), APPEAR TO HAVE HELPED CALM HIS STOMACH. HE WAS ABLE TO REST QUIETLY THROUGHOUT THE NIGHT WITHOUT MORE EMESIS ISSUES. HE WAS ABLE TO ANSWER RECRUIT INSTRUCTOR QUESTIONS IN A LOGICAL AND LINEAR MANNER. CONCERNINGLY, HE STATED, "I AM GOING TO HANG MYSELF ON RELEASE". HE DENIED A PLAN TO TRY TO HARM OR KILL HIMSELF ON THE BHU. "IT'LL HAPPEN RIGHT AFTER I LEAVE." HE STATED, "IF SOMEONE KNOWS A WAY TO STOP ME, THEY CAN TRY, BUT THAT'S MY PLAN." HE PARTICIPATED IN SNACK AND WRAP UP GROUP, AND DID NOT VOMIT UP HIS SNACK. HE WENT TO BED SHORTLY AFTER, AND WAS NOTED TO BE RESTING QUIETLY WITH EYES CLOSED AND RESPIRATIONS CONFIRMED FOR THE REMAINDER OF THE SHIFT. CONTINUING TO MONITOR FOR SAFETY WITH Q15 MINUTE CHECKS.
[2024-11-21 07:55] LABS: BASOPHILS ABSOLUTE AUTO 0.05 K/mm3 (0.00-0.23); BASOPHILS PERCENT AUTO 0 % (0-2); EOSINOPHILS ABSOLUTE AUTO 0.07 K/mm3 (0.00-0.68); EOSINOPHILS PERCENT AUTO 1 % (0-6); Hematocrit 45.6 % (37.0-53.0); Hemoglobin 15.3 g/dL (13.5-17.5); IMMATURE GRAN ABSOLUTE AUTO 0.03 K/mm3 (0.00-0.10); IMMATURE GRAN PERCENT AUTO 0 % (0-1); LYMPHOCYTES ABSOLUTE AUTO 2.21 K/mm3 (0.84-5.20); LYMPHOCYTES PERCENT AUTO 19 % (21-46); MONOCYTES ABSOLUTE AUTO 0.72 K/mm3 (0.16-1.47); MONOCYTES PERCENT AUTO 6 % (4-13); Mean Corpuscular HGB Conc 33.6 g/dL (31.5-36.5); Mean Corpuscular Volume 88 fL (80-100); NEUTROPHILS ABSOLUTE AUTO 8.63 K/mm3 (1.96-9.15); NEUTROPHILS PERCENT AUTO 74 % (41-73); NRBC ABSOLUTE 0.00 K/mm3 (0.00-0.02); NRBC Auto 0.0 /100 WBC (0.0-0.2); Platelet Count 330 K/mm3 (150-400); RDW Coefficient Variation 12.0 % (11.7-14.2); RDW Standard Deviation 39.0 fL (35.1-46.3)
[2024-11-21 08:20] LABS: Alanine Aminotransfer (ALT/SGP 27.0 U/L (12-78); Albumin, Blood 3.2 g/dL (3.4-5.0); Albumin/Globulin Ratio 0.9 (0.8-1.8); Anion Gap 9.0 mmol/L (3-11); Aspartate Aminotrans (AST/SGOT 16.0 U/L (12-37); Bilirubin, Total 0.3 mg/dL (0.1-1.0); Blood Urea Nitrogen 13.0 mg/dL (8-24); CO2, Blood 25.0 mmol/L (21-32); Calcium, Blood 8.5 mg/dL (8.5-10.1); Chloride, Blood 106.0 mmol/L (98-108); Creatinine, Blood 0.85 mg/dL (0.60-1.20); Globulin, Blood 3.7 g/dL (2.2-4.0); Glucose, Blood 104.0 mg/dL (70-99); Potassium, Blood 4.3 mmol/L (3.5-5.5); Sodium, Blood 136.0 mmol/L (136-145); Total Protein, Blood 6.9 g/dL (6.4-8.2)
[2024-11-21 08:57] VITALS: BP 130/88
[2024-11-21 20:27] VITALS: BP 129/104
--- NOTE | 2024-11-22 04:45 | NUR ---
SHIFT SUMMARY: PATIENT WAS VOMITING AT THE BEGINNING OF THE SHIFT. RN TALKED OVER THE SITUATION WITH HIM AND MADE A GAME PLAN TOGETHER. HE TRIED AMPHOJEL, WHICH WAS SUCCESSFUL IN GIVING HIM A BREAK FROM HIS NAUSEA. HE WAS ABLE TO REST FOR A TIME, AND STATED HE DID NOT WANT TO ATTEND SNACK OR WRAP UP GROUP. HE WAS ABLE TO ANSWER TITLE INVESTIGATOR QUESTIONS IN A LOGICAL AND LINEAR MANNER. HE DENIED SUICIDAL IDEATION, THOUGHTS OF SELF HARMING AND A/V/T HALLUCINATIONS. HE PRESENTED FOCUSED ON HIS HEALTH AND "GETTING RID OF WHATEVER THIS PROBLEM IS". HE SHOWED FORWARD THINKING BEHAVIORS. HE HAD REGLAN AND TUMS WITH HIS EVENING MEDICATION ADMINISTRATION, WHICH WERE HELPFUL FOR HIM FOR SEVERAL HOURS. HE AWOKE LATER IN THE NIGHT, AND HAD AN EPISODE OF NAUSEA/VOMITING. HE REQUESTED AND WAS GIVEN PHENERGAN AND VISTARIL, FOR NAUSEA/VOMITING AND ANXIETY WITH A MASS SCORE OF 6. THEY WERE EFFECTIVE IN THAT HE STOPPED VOMITING AND WAS ABLE TO REST QUIETLY. HE ALSO WAS GIVEN ULI BARAHONA CREME, WHICH HE SPREAD ON SORE MUSCLES, AFTER EDUCATION THAT IT MIGHT BE HELPFUL TO CURB NAUSEA. HE RESTED QUIETLY FOR THE REST OF THE SHIFT, EXCEPT FOR TAKING HIS PRILOSEC IN THE FRONT OFFICE MANAGER HOURS. CONTINUING TO MONITOR FOR SAFETY WITH Q15 MINUTE CHECKS.
--- NOTE | 2024-11-22 05:20 | NUR ---
PATIENT FALL: PATIENT WAS SITTING AT THE END OF THE MAXWELL. HE STATED HE WAS CONCERNED, "BECAUSE MY ROOMMATE IS TRYING TO SLEEP, AND I KEEP THROWING UP". HE WAS TRYING TO STAND UP, USING THE RAIL, AND HIS HAND SLIPPED, AND HIS RIGHT OUTER WRIST HIT THE DOOR STOP ON THE FLOOR. HE NEEDED A LITTLE ASSISTANCE TO GET UP, DUE TO THE PAIN IN HIS RIGHT WRIST AREA. NO VISIBLE REDNESS OR TRAMMELL ON THAT AREA. PATIENT IS IN THE SENSORY ROOM, AND IS DENYING NEED FOR ICE OR PAIN RELIEVER. HE HAS BEEN TOLD THAT HE CAN ASK FOR ICE OR MEDICATION ANY TIME AND THAT WE WILL REPORT TO HIS CONTINUING TO MONITOR.
[2024-11-22 08:21] VITALS: BP 118/93
--- NOTE | 2024-11-22 10:11 | NUR ---
UPDATE PT C/O OF 8-9 EPIGASTRIC PAIN, LOCALIZED, AND FEELS LIKE "FOOD IS STUCK THERE". PT STATES THIS IS CHRONIC AND HAS EXPERIENCED THIS FOR THE PAST YEAR, BUT PT APPEARS TO BE MORE PAINFUL THAN PREVIOUS DAYS THIS RN HAS TAKEN CARE OF PT. PT ALSO VOMITED LAST NIGHT PER REPORT. DR ULLOA NOTIFIED W/ ORDERS FOR GI COCKTAIL AND CT.
[2024-11-22] MEDS ORDERED: Mag Hydrox/Al Hydrox/Simeth 18 ML,Lidocaine 2% Viscous Soln 9 ML,Atropine/Scopalam/Hyos... PO ONE (10:20)
[2024-11-22] MEDS ORDERED: Mag Hydrox/Al Hydrox/Simeth 72 ML,Lidocaine 2% Viscous Soln 36 ML,Atropine/Scopalam/Hyo... PO PRN (15:30)
--- NOTE | 2024-11-22 17:53 | NUR ---
SHIFT SUMMARY PT DENIES SI, HI, AVTH. PT DID STATE MOOD WAS, "PISS POOR" D/T EPIGASTRIC PAIN, BUT NO THOUGHTS OF SUICIDE AT THIS TIME. NO ACUTE EVENTS SINCE PREVIOUS NOTE. NO EPISODES OF VOMITING TODAY.
[2024-11-22 19:20] VITALS: BP 111/77
--- NOTE | 2024-11-23 04:52 | NUR ---
SHIFT SUMMARY: PATIENT WAS IN THE MILIE[place] AT THE BEGINNING OF THE SHIFT, INTERACTING WITH STAFF AND PEERS. HIS MOOD WAS EUTHYMIC AND HE WAS PLEASANT AND COOPERATIVE WITH CARES. HE STATED, "I FINALLY GOT RID OF THE NAUSEA." HE SHOWED HIS SCOPOLOMINE PATCH AND HAD TEARS OF RELIEF. HE STATED, "IT HAS GIVEN ME 100% RELIEF." HE DID NOT WANT A GI COCKTAIL, AND STATED, "I'LL LET YOU KNOW IF I NEED ONE." HE DID NOT WANT ONE ALL NIGHT. HE WAS ABLE TO ANSWER GEAR AND SPLINE GRINDER QUESTIONS IN A LOGICAL AND LINEAR MANNER. HE STATED THAT HE DOES NOT FEEL SUICIDAL AT THIS TIME, "BUT I'M AFRAID WHEN I GET BACK IN THAT SITUATION AGAIN, IT'LL BE DIFFERENT. I'M WORRIED ABOUT IT." HIS ROOMMATE HAS EVIDENTLY OFFERED TO TALK WITH HIM ABOUT HIS FUTURE AND GIVE INPUT. HE WAS HAPPY ABOUT THAT, "BECAUSE I THOUGHT HE HATED ME, BUT HE JUST DIDN'T LIKE THE NOISES I MADE". HE DENIED WANTING TO SELF HARM AND ANY A/V/T HALLUCINATIONS. HE CAME OUT FOR SNACK AND PARTICIPATED, EATING 100%. HE WROTE ON HIS WRAP UP GROUP PAPER, HOW HAPPY HE IS TO HAVE THE NAUSEA GONE. HE STAYED UP FOR A TIME AND WATCHED TELEVISION. HE REQUESTED A TRAZODONE FOR INSOMNIA, AND A SECOND ONE SOME TIME LATER. THEY WERE EFFECTIVE. HE RESTED QUIETLY ALL NIGHT WITH EYES CLOSED AND RESPIRATIONS CONFIRMED. CONTINUING TO MONITOR FOR SAFETY WITH Q15 MINUTE CHECKS.
--- NOTE | 2024-11-23 05:05 | NUR ---
SHIFT SUMMARY: PATIENT WAS STANDING IN THE HALLWAY AT THE BEGINNING OF THE SHIFT. HE HAD THE HEADPHONES ON BUT PULLED THEM BACK TO GREET RN, AND OFFERED THAT HE HAD A "GOOD DAY". HE WAS WEIGHED IN TO SEE IF HE NEEDED ENSURE, AND HE MENTIONED THAT HE WAS GREATLY HOPING HE WOULD GET IT, IT "TASTES GOOD". HOWEVER, HE WAS 95 KG AT ADMISSION AND IS NOW 95.9 KG. THE WEIGHT WAS TAKEN AT THE END OF THE EVENING. PATIENT WAS ABLE TO ANSWER SILK WASHING MACHINE OPERATOR QUESTIONS IN A LOGICAL AND LINEAR MANNER. HE DENIED SUICIDAL IDEATION, "I'VE NEVER HAD THAT", THOUGHTS OF SELF HARMING AND A/V/T HALLUCINATIONS. HE DID NOT PRESENT RESPONDING TO INTERNAL STIMULI. HOWEVER, HE CONTINUES TO HAVE MANNERISMS THAT RESEMBLE OCD. HE CONTINUES TO PERSEVERATE ON THE NUMBER "7", WHICH HE STATES IS "MY FAVORITE NUMBER". HE ALLOWS RN TO COUNT WITH HIM UNDER DOORWAYS, AND BEFORE TAKING PILLS. HE IS LEARNING TO COUNT TO SEVEN IN QATARI. HE PARTICIPATED IN SNACK, AND TOOK SOME TIME TO EAT, SO RN STAYED IN WITH HIM, THEN MHA. HE WAS COMPLIANT WITH EVENING MEDICATIONS. HE IS ABLE TO POINT TO EACH MEDICATION AND SAY WHAT IT IS AND WHAT IT IS FOR. AFTER SNACK, HE STOOD BY THE NURSING STATION FOR A LONG TIME, SOMETIMES INTERACTING WITH STAFF, BUT MOSTLY STANDING TO LISTEN TO MUSIC. HE THEN WENT INTO THE DAY ROOM, AND INTERACTED WELL WITH FEMALE MHA, SPEAKING TO HER IN FULL, COHERENT SENTENCES. HE CAME OUT AFTER A TIME AND STATED THAT HE WAS "ANXIOUS" AND "I NEED SOMETHING FOR IT". HE WAS ABLE TO PARTICIPATE IN MEDICATION EDUCATION REGARDING HIS PRN AVAILABILITY, AND SETTLED ON ZYPREXA, ALTHOUGH HE HAS REJECTED IT IN THE PAST. HIS MASS SCORE WAS 10, AND THE ZYPREXA WAS EFFECTIVE IN HELPING HIM CALM AND ENJOY SOME TIME WITH MUSIC, THEN GO TO BED. HE WENT TO BED ABOUT AN HOUR AFTER TAKING THE ZYPREXA, AND WAS IN BED RESTING WITH EYES CLOSED AND RESPIRATIONS CONFIRMED FOR THE REMAINDER OF THE SHIFT. CONTINUING TO MONITOR FOR SAFETY WITH Q15 MINUTE CHECKS.
--- NOTE | 2024-11-23 05:23 | NUR ---
ADDENDUM: PLEASE DISREGARD NOTE IMMEDIATELY PRIOR TO THIS ONE. IT WAS WRITTEN REGARDING ANOTHER PATIENT. TO SEE SHIFT NOTE, IT IS THE NOTE BEFORE THE ONE BEFORE THIS ONE, OR TWO NOTES AGO. THANK YOU.
[2024-11-23] MEDS ORDERED: Sucralfate 1000MG / 10ML UD BTL PO SCH (11:30)
--- NOTE | 2024-11-23 16:40 | NUR ---
SHIFT SUMMARY NO ACUTE EVENTS TODAY. PT DENIES SI, HI, AVTH. CONTINUES TO ENDORSE WORRY AND BEING UNSURE ABOUT SAFETY POST DISCHARGE D/T LIVING SITUATION. PT HAD 2 BM'S TODAY, DID NOT VOMIT, AND STATED NAUSEA WAS INTERMITTENT AND "BARELY THERE". CONTINUES TO HAVE EPIGASTRIC PAIN, BUT IS WELL MANAGED W/ GI COCKTAIL.
[2024-11-23 19:24] VITALS: BP 116/75
--- NOTE | 2024-11-24 04:46 | NUR ---
SHIFT SUMMARY AT BEGINNING OF SHIFT PATIENT PLAYING CARDS WITH PEERS. AFTER GAME COMPLETE C/O SHARP PAIN TO LEFT UPPER BACK IN ADDITION TO LOW BACK PAIN RATING 9/10 TYLENOL AND BACLOFEN GIVEN. VERBALIZED FEELING ANXIOUS 6/10 HYDROXYZINE GIVEN. DENIES SI, HI, OR AVTH. VERBALIZED FEELING DEPRESSED 8/10. VERBALIZED THAT NAUSEA IS BETTER WITH THE SCOPOLAMINE PATCH IN PLACE. AFTER SNACK PATIENT WATCHING MOVIE WITH PEERS. TRAZODONE GIVEN FOR SLEEP AID. PATIENT APPEARS TO BE SLEEPING WELL T/O NIGHT RESP EVEN AND UNLABORED. CONTINUE TO MONITOR Q15MIN
[2024-11-24 08:57] VITALS: BP 127/83
--- NOTE | 2024-11-24 11:00 | NUR ---
IMPORTANT DISCHARGE INFORMATION PATIENT IS BEING DISCHARGED TODAY. [employer] WILL BE COMING TO PICK HIM UP AROUNG 2PM. HE WILL BE GOING BACK TO [address] [place] [address] LEXY AMEZCUA. ALL PARTIES VERBALIZE AN UNDERSTANDING. FOLLOW UP APPOINTMENT WITH PCP AT [facility] = RONDA LAZCANO 11/26/24AT 4:45 PM. FOLLOW UP WITH [facility] AT [facility] 3RD FLOOR. A REFERRAL HAS BEEN PLACED WITH THE CRISIS TEAM. [facility]: FAX [phone] RESOURCES: [employer] [facility] AND PR INFORMATION ON CARE GIVING SUPPORT.
[2024-11-24] MEDS ORDERED: ABILIFY MYCITE10 M2 PO (11:18)
--- NOTE | 2024-11-24 14:07 | NUR ---
DISCHARGE SUMMARY PT D/C PACKET PRINTED WITH LABS ATTACHED. EXPLAINED D/C PLAN TO PT AND ANSWERED ALL QUESTIONS. PT SIGNED ACKNOWLEDGEMENT FORM. COPY OF SAFETY PLAN GIVEN TO PT. INFORMATION R/T MEDICAL TRANSPORTATION AND [facility] PRINTED BY RUSSELL WITH ALSO GIVEN TO THE PATIENT. MEDS FAXED TO [facility] IN [place]. PT WAS GIVEN BELONGINGS BACK FROM HIS TOTE AND FROM THE SAFE. SECURITY DELIVERED HIS KEYS AND BREAKFAST ATTENDANT. PT DRESSED SELF AND AMBULATED OUT OF FACILITY TO [facility]SP[facility]
== END 2024-11-24 14:03 | disposition home or self-care (01) | DRG 885 ==
LOC: BHU 11:07
PROVIDERS: Family Medicine; ADMIT Psychiatry & Neurology Psychiatry
DX: F33.2 Major depressive disorder, recurrent severe without psychotic features (principal); R45.851 Suicidal ideations; Z59.01 Sheltered homelessness; R31.9 Hematuria, unspecified; I10 Essential (primary) hypertension; J45.909 Unspecified asthma, uncomplicated; G89.4 Chronic pain syndrome; E78.00 Pure hypercholesterolemia, unspecified; F17.210 Nicotine dependence, cigarettes, uncomplicated; F12.10 Cannabis abuse, uncomplicated; M62.830 Muscle spasm of back; M25.532 Pain in left wrist; M25.531 Pain in right wrist; M25.572 Pain in left ankle and joints of left foot; M25.571 Pain in right ankle and joints of right foot; M25.561 Pain in right knee; M25.562 Pain in left knee; R11.2 Nausea with vomiting, unspecified; R10.13 Epigastric pain; R13.10 Dysphagia, unspecified; K21.9 Gastro-esophageal reflux disease without esophagitis; K44.9 Diaphragmatic hernia without obstruction or gangrene; Z88.8 Allergy status to other drugs, medicaments and biological substances; Z91.09 Other allergy status, other than to drugs and biological substances; Z90.49 Acquired absence of other specified parts of digestive tract; Z79.51 Long term (current) use of inhaled steroids; Z79.899 Other long term (current) drug therapy; Z79.1 Long term (current) use of non-steroidal anti-inflammatories (NSAID); Z28.21 Immunization not carried out because of patient refusal
CPT/HCPCS: 36415; 74177; 80053; 80061; 83036; 85025; 93005; 93010; A9270; Q9967